=== PATIENT | male | born 1995 | race Caucasian/White ===

== ENCOUNTER 2018-04-29 14:14 | Inpatient (IN) | payer OTHER ==
[~2018-04-29] VITALS: Ht 182.9 cm; Wt 71.3 kg
--- NOTE | 2018-04-29 14:44 | ED PSYCHIATRIC COMPLAINT ---
See Addendum History of Present Illness General Chief Complaint: Psychiatric Related Complaint Stated Complaint: "BAD THOUGHTS" -SI, -HI Source: patient Exam Limitations: no limitations Vital Signs & Intake/Output Vital Signs & Intake/Output Vital Signs Date Time Temp Pulse Resp B/P B/P Pulse O2 O2 Flow FiO2 Mean Ox Delivery Rate 04/29 1646 99.9 94 18 115/75 97 Room Air 04/29 1538 Room Air 04/29 1438 98.6 88 16 113/62 98 Room Air Allergies Coded Allergies: No Known Allergies (07/15/16) Reconcile Medications No Known Home Medications Triage Note: PT PRESENTS TO THE ER WITH FRIEND TALI.. ALYSSA ONE OF THE RESIDENTS CALLED TO INFORM BEAD WIRE INSULATOR THAT PT IS SEVERELY DEPRESSED AND HAS A RECENT ATTEMPT AT SI (CUTTING HIS WRIST WITH A RAZOR BLADE) PER RESIDENT PT DENIES SI AND HI BUT FEELS THAT PT IS NOT BEING TRUTHFUL ABOUT HIS FEELINGS. PT STATES THAT HE HAS DEPRESSION AND WAS SENT IN FROM [facility] FOR A PYSCH EVALUATION.. PT STATES THAT HE PROBABLY NEEDS A EVALUATION.. PT STATES THAT HE WAS SI BUT CURRENTLY IS NOT.. PT FRIEND TALI STATES THAT YESTERDAY PT CUT HIS WRISTS LEFT FOREARM.. PT NOTED TO HAVE MULTIPLE SUPERFICIAL CUTS TO HIS LEFT FORARM.. CUTS ARE SCABBED AND RED.. PT STATES THAT HE FEELS LIKE HE IS LETTING EVERYONE DOWN.. Triage Nurses Notes Reviewed? yes Onset: Gradual Duration: week(s): Timing: recent history HPI: 23 year old male presents to the ED for increased feelings of depression over the past month. Pt also presents with several superficial lacerations to the left anterior forearm. Pt denies suicidal ideation. No drug use. Past History Travel History Traveled to [place] past 21 day No Medical History Any Pertinent Medical History? 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 No Review of Systems Review of Systems Constitutional: Denies: fever. EENTM: Denies: visual changes. Respiratory: Denies: short of breath. Cardiovascular: Denies: chest pain. GI: Denies: abdominal pain. Genitourinary: Reports: no symptoms. Musculoskeletal: Reports: no symptoms. Skin: Reports: see HPI. Neurological/Psychological: Reports: depressed. Hematologic/Endocrine: Reports: no symptoms. Immunologic/Allergic: Reports: no symptoms. Physical Exam Physical Exam General Appearance: well developed/nourished, alert, awake, anxious, mild distress Head: atraumatic, normal appearance Eyes: Bilateral: normal appearance, PERRL, EOMI. Ears, Nose, Throat: normal pharynx, normal ENT inspection, hearing grossly normal Neck: normal inspection, supple, full range of motion Respiratory: normal breath sounds, chest non-tender, no respiratory distress Cardiovascular: regular rate/rhythm Gastrointestinal: soft, non-tender Extremities: evidence of injury Neurological/Psychiatric: awake, alert, anxious, depressed affect Appearance/Memory/Insight: appropriate appearance Behavoir/Eye Contact/Speech: cooperative Thoughts/Hallucinations: no apparent hallucination Skin: linear abrasions, left wrist. Medical Clearance Statement * SAD PERSONS SAD PERSONS Response Value Male Sex? yes 1 Depression/Hopelessness? yes 2 Single//? yes 1 Social Support? has support 0 Total 4 SAD PERSONS Done? yes Progress Differential Diagnosis: drug intoxication, drug overdose, depression, suicidal ideation Plan of Care: Orders Procedure Date/time Status ETHANOL 04/29 1534 Complete Continuous Observation Monitor 04/29 1521 Active URINE DRUG SCREEN FOR ER ONLY 04/29 1521 Complete COMPREHENSIVE METABOLIC PANEL 04/29 1521 Complete CBC WITHOUT DIFFERENTIAL 04/29 1521 Complete ED CRISIS PSYCH CONSULT 04/29 1521 Active Laboratory Tests 04/29/18 1606: Urine Opiates Screen < 100, Methadone Screen < 40, Barbiturate Screen < 60, Ur Phencyclidine Scrn < 6.00, Amphetamines Screen < 100, U Benzodiazepines Scrn < 85, Urine Cocaine Screen < 50, Urine Cannabis Screen < 5.00 04/29/18 1534: Anion Gap 11, Estimated GFR > 60, BUN/Creatinine Ratio 10.0, Glucose 99, Calcium 9.9, Total Bilirubin 1.0, AST 24, ALT 27, Alkaline Phosphatase 51, Total Protein 7.3, Albumin 4.6, Globulin 2.7, Albumin/Globulin Ratio 1.7, CBC w Diff NO MAN DIFF REQ, RBC 5.41, MCV 88.9, MCH 29.7, MCHC 33.4, RDW 13.7, MPV 7.7, Gran % 68.0, Lymphocytes % 22.5, Monocytes % 8.2, Eosinophils % 0.9, Basophils % 0.4, Absolute Granulocytes 4.8, Absolute Lymphocytes 1.6, Absolute Monocytes 0.6, Absolute Eosinophils 0.1, Absolute Basophils 0, Serum Alcohol < 10.0 04/29/18 1522: Serum Alcohol Cancelled Initial ED EKG: normal axis Departure Departure Disposition: STILL A PATIENT Condition: Stable Clinical Impression Primary Impression: Depression Referrals: Verna ROCHA,Virginie Horton (PCP/Family) Departure Forms: Customer Survey General Discharge Information Prescriptions: Current Visit Scripts No Known Home Medications Comments Labs were sent and the patient was placed in a secure room. A sitter was ordered. Crisis consultation was requested. The patient was signed out to MAYA Kowalski At 5 PM.
[2018-04-29 15:48] LABS: ABSOLUTE BASOPHIL COUNT 0 /CUMM (0.0-0.2); ABSOLUTE EOSINOPHIL COUNT 0.1 /CUMM (0.0-0.7); ABSOLUTE GRANULOCYTE CT 4.8 /CUMM (1.4-6.5); ABSOLUTE LYMPH COUNT 1.6 /CUMM (1.2-3.4); ABSOLUTE MONOCYTE COUNT 0.6 /CUMM (0.10-0.60); BASOPHIL % 0.4 % (0.0-2.0); EOSINOPHIL % 0.9 % (0-5); HEMATOCRIT 48.1 % (42-52); MEAN CORPUSCULAR HGB 29.7 PG (27.0-31.0); MEAN CORPUSCULAR HGB CONC 33.4 G/DL (33.0-37.0); MEAN CORPUSCULAR VOLUME 88.9 FL (80.0-94.0); MEAN PLATELET VOLUME 7.7 FL (7.4-10.4); PLATELET COUNT 313 /CUMM (130-400); RBC DISTRIBUTION WIDTH 13.7 % (11.5-14.5); RED BLOOD CELL CT 5.41 /CUMM (4.70-6.10); WHITE BLOOD CELL COUNT 7.1 /CUMM (4.8-10.8)
--- NOTE | 2018-04-29 19:25 | ED PSY CRISIS COLLATERAL NOTE ---
Collateral Note Collateral Note Family/Inform/Federica Contacts: Crisis contacted [facility]'s answering service to obtain collateral information- Agustina Linares, FRAME FEEDER - [phone] the on-call clinician returned the call and advised that [facility] has no record of Antonio being an active client, current or past, and she had seen no report of any incidents / events related to him.
--- NOTE | 2018-04-29 20:14 | ED PSYCH CRISIS CONSULTATION ---
Crisis Consult Basic Assessment Date of Consult: 04/29/18 Responsible Person/Accompanied By: Friends Suad Insurance Authorization: Insurance #1: Insurance name: [employer] Phone number: Policy number: [id number] Group number: [id number] Authorization number: ED Provider: Patient's ED Provider: Prudencio Duarte DO Primary Care Physician: Patient's PCP: Virginie Gillespie MD PCP's Current Psychiatrist: None Chief Complaint: Psychiatric Related Complaint Patient's Quote: " I was just depressed." Present Illness: The patient is a 23 year old single, male presenting to the ED, from [facility] after meeting with Dr. Trenton Meadows ([phone]). The patient was sent over for a Crisis evaluation and "Ignacio (Trenton Meadows)," called the triage nurse to express his concerns. The patient presents with depressed mood and flat affect. He had poor eye contact, however had good participation in the evaluation. He reports that he has been feeling more depressed lately and having thoughts of self harm. He has cuts to his left wrist, which appear to have scabbed over. He states that he was having thoughts to "take the pain for others ," and cut himself yesterday morning. He does admit to having suicidal thoughts while he was cutting, however denies adamantly that it was a suicide attempt. He denies any history of suicide attempts, however did confirm making a statement to his friends on Sunday night (04/27/2018), about wanting to crash his car and taking a pair of scissors to his wrist (not cutting), a couple of weeks ago. He states that he regrets that he cut himself yesterday and does not want to . He does admit to having depression and anxiety, rating his depression a 1 out of 10 and anxiety a 2 out of 10, 10 being the most severe. He states that he has been upset that he is not in the job, he would like and with his ex- girlfriend / friend Suad. He denies feeling helpless, hopeless, worthless or useless. He denies any history of mental health issues or treatment. He states that he is not having homicidal thoughts and has never had hallucinations. He denies any drug or alcohol abuse. He denies any trauma or abuse hx. He resides with his parents and sister and states that his family is very close. 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 He would like to be discharged home and to follow up with outpatient treatment. STEPHANIE spoke with his mother, Martha Martinez ([phone]),his father Schuyler Martinez ) and his sister Lynette. His parents are very concerned about the patients relationship with his friend Gibran and his ex-girlfriend / friend Abbie. They state that he never had depression and any problems until he broke up with Abbie, noting that recently Gibran asked the patient if he could date Abbie. They have noticed him to be more withdrawn and "pushing everyone aside." They confirm that he has no history or drug or alcohol abuse or mental health issues. They have never known him to have suicidal thoughts or attempt suicide. They state that he has been drinking a little bit more since hanging out with Abbie. Lynette states that the patient told her that he cut himself because he felt bad, not because he wanted to . His parents and his sister are not concerned that he would harm himself. His father has been having conversations with him about his future and planing to move out at some point. They appear to be very supportive and just want him to have healthy relationships. STEPHANIE spoke to Abbie Graves ([phone]) and Gibran De La O ([phone]), who brought him to the ED today. Abbie states that she was dating that patient, however states that they are now friends. Gibran states that he has been friends with the patient since they were in high school. Abbie reports that the patient has made multiple suicidal statements to her and she is concerned for his safety. She states that he told her today that 1-2 weeks ago, he tried to cut his wrist with scissors at work. Abbie and Gibran state that on Sunday night, he made comments about "crashing his car," and they were so concerned that they drove him home, that night. Abbie notes that the patient did have one drink, when he made that statement. Abbie reports that he then cut himself in the AM, stating "he wanted to feel pain." Abbie reports that she has noticed him to be more depressed, noting that it started about 1 month ago. Abbie and Gibran state that they are very concerned that the patient will kill himself. Patient's Address: [address] [place] [address] Other Phone Number: Who Do You Live With? Other (see notes) (Mother, father and sister) Family/Informants Interviewed: Mother- Martha, father Schuyler, sister Lynette, friend Gibran and ex-girlfriend / friend Abbie. Allergies - Coded Allergies: No Known Allergies (07/15/16) Current Medications - No Known Home Medications Laboratory Results: Laboratory Tests 04/29/18 1606: Urine Opiates Screen < 100, Methadone Screen < 40, Barbiturate Screen < 60, Ur Phencyclidine Scrn < 6.00, Amphetamines Screen < 100, U Benzodiazepines Scrn < 85, Urine Cocaine Screen < 50, Urine Cannabis Screen < 5.00 04/29/18 1534: Anion Gap 11, Estimated GFR > 60, BUN/Creatinine Ratio 10.0, Glucose 99, Calcium 9.9, Total Bilirubin 1.0, AST 24, ALT 27, Alkaline Phosphatase 51, Total Protein 7.3, Albumin 4.6, Globulin 2.7, Albumin/Globulin Ratio 1.7, CBC w Diff NO MAN DIFF REQ, RBC 5.41, MCV 88.9, MCH 29.7, MCHC 33.4, RDW 13.7, MPV 7.7, Gran % 68.0, Lymphocytes % 22.5, Monocytes % 8.2, Eosinophils % 0.9, Basophils % 0.4, Absolute Granulocytes 4.8, Absolute Lymphocytes 1.6, Absolute Monocytes 0.6, Absolute Eosinophils 0.1, Absolute Basophils 0, Serum Alcohol < 10.0 04/29/18 1522: Serum Alcohol Cancelled Past History Past Medical History Neurological: NONE EENT: NONE Cardiovascular: NONE Respiratory: NONE Gastrointestinal: NONE Hepatic: NONE Renal: NONE Musculoskeletal: NONE Psychiatric: NONE Endocrine: NONE Blood Disorders: NONE Cancer(s): NONE 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 Physical Limitations (Interventions): None noted Psychiatric Treatment History Psych Treatment Psychiatric Treatment No (Pt. denies) Inpatient Treatment No (Pt. denies) Outpatient Treatment No Location of Treatment N/A Reason for Treatment N/A Dates of Treatment N/A Response to Treatment N/A Diagnosis by History: N/A Substance Use/Abuse History Drug Use/Abuse Substances Used/Abused No First Use N/A Last Used N/A How much used/taken N/A How often N/A For how long N/A Route of use N/A Substance Abuse Treatment Substance Abuse Treatment Past Substance Abuse [place] No Inpatient Treatment No Outpatient Treatment No Location of Treatment N/A Reason for Treatment N/A Dates of Treatment N/A Response to Treatment N/A Comments: N/A Current Mental Status Mental Status Orientation: Person, Place, Situation Affect: Depressed, Flat Speech: WNL Neuro-vegetative: WNL, The patient stated that he had a bad dream, prior to cutting his wrist. Appearance Appearance- Dress/Hygiene: The patient was sitting on the bed, neat clean and well groomed. Behaviors Thought Process: WNL Thought Content: WNL Memory: WNL Insight: WNL SI/HI Risk Assessment Past Suicidal Ideation/Attempts Yes Current Suicidal Ideation/Att No Past Homicidal Ideation/Att: No Current Homicidal Ideation/Attempts No Degree of Intent: The patient admits to having suicidal thoughts in the past, however denies any current thoughts. He does admit to cutting his wrist yesterday, in an attempt to self harm and adamantly states that it was not a suicide attempt. He did confirm that he made statements about crashing his car on Sunday night. His friends are very concerned about his safety and state that he has made multiple suicidal statements to them. Danger To: Self Gravely Disabled: N/A Risk Factors: age (under 24/over 65), poor impulse control, male Lethality Ratin PTSD Checklist PTSD Done? patient declined (Denies trauma or abuse hx.) ED Management Sitter: Yes Restraints: No DSM5/PS Stressors/Medical Prob Diagnosis' (DSM 5, Stressors, Medical): F32.9 Unspecified Depressive Disorder Medical:Unremarkable Stressors: Family issues, relationship issues, employment Current GAF: 28 Comments: N/A Departure Disposition Psych Medical Clearance Date: 04/29/18 Medically Cleared at: 1845 Time Started: 1844 Time Ended: 1999 Psychiatrist Consulted: Basilia Tam MD Date Disposition Established: 04/29/18 Time Disposition Established: 2014 Plan for Disposition - Modality: Inpatient Psychiatry Facility: [facility] Contact: N/A Telephone: N/A Rationale for Disposition: The patient presented to the ED with depression and a recent self harming episode, in which he cut his left wrist. He admits to having suicidal ideations over the last month, however minimizes them. His friends were very concerned for his safety and report that he has made concerneing statments to them, specifically talking about crashing his car over the weekend. The case was discussed with Dr. Tam and she found him to be a danger to himself and in need of an inpatient admission. She will admit him to [facility] on a PEC. Type of IP Admission: PEC Additional Instructions: N/A Referrals Verna ROCHA,Virginie Horton (PCP/Family)
--- NOTE | 2018-04-29 21:27 | IP CRISIS DIAG ASSESS PSYCH ---
See Addendum Diagnostic Assessment Basic Assessment Insurance Authorization: Insurance #1: Insurance name: [employer] Phone number: Policy number: [id number] Group number: [id number] Authorization number: STEPHANIE called and was connected to [employer], after hours ( ). STEPHANIE spoke to Narinder LyonHoward who stated that they have been having issues with one of their branches and therefore there was no one available to complete the prior authorization. Narinder will have someone call when the are available, however if it is not done by the AM, Crisis should contact [phone]- [phone] to complete the prior authorization, THE AUTHORIZATION WILL NEED TO BE COMPLETED WITHIN 24 HOURS OF ADMISSION, OR THEY WILL NOT COVER. Primary Care Physician: Patient's PCP: Virginie Gillespie MD PCP's Patient's Quote: " I was just depressed." Present Illness: The patient is a 23 year old single, male presenting to the ED, from [facility] after meeting with Dr. Trenton Meadows ([phone]). The patient was sent over for a Crisis evaluation and "Ignacio (Trenton Meadows)," called the triage nurse to express his concerns. The patient presents with depressed mood and flat affect. He had poor eye contact, however had good participation in the evaluation. He reports that he has been feeling more depressed lately and having thoughts of self harm. He has cuts to his left wrist, which appear to have scabbed over. He states that he was having thoughts to "take the pain for others ," and cut himself yesterday morning. He does admit to having suicidal thoughts while he was cutting, however denies adamantly that it was a suicide attempt. He denies any history of suicide attempts, however did confirm making a statement to his friends on Sunday night (04/27/2018), about wanting to crash his car and taking a pair of scissors to his wrist (not cutting), a couple of weeks ago. He states that he regrets that he cut himself yesterday and does not want to . He does admit to having depression and anxiety, rating his depression a 1 out of 10 and anxiety a 2 out of 10, 10 being the most severe. He states that he has been upset that he is not in the job, he would like and with his ex- girlfriend / friend Abbie and Gibran. He denies feeling helpless, hopeless, worthless or useless. He denies any history of mental health issues or treatment. He states that he is not having homicidal thoughts and has never had hallucinations. He denies any drug or alcohol abuse. He denies any trauma or abuse hx. He resides with his parents and sister and states that his family is very close. 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 He would like to be discharged home and to follow up with outpatient treatment. STEPHANIE spoke with his mother, Martha Martinez ([phone]),his father Schuyler Martinez ) and his sister Lynette. His parents are very concerned about the patients relationship with his friend Gibran and his ex-girlfriend / friend Abbie. They state that he never had depression and any problems until he broke up with Abbie, noting that recently Gibran asked the patient if he could date Abbie. They have noticed him to be more withdrawn and "pushing everyone aside." They confirm that he has no history or drug or alcohol abuse or mental health issues. They have never known him to have suicidal thoughts or attempt suicide. They state that he has been drinking a little bit more since hanging out with Abbie. Lynette states that the patient told her that he cut himself because he felt bad, not because he wanted to . His parents and his sister are not concerned that he would harm himself. His father has been having conversations with him about his future and planing to move out at some point. They appear to be very supportive and just want him to have healthy relationships. STEPHANIE spoke to Abbie Graves ([phone]) and Gibran De La O ([phone]), who brought him to the ED today. Abbie states that she was dating that patient, however states that they are now friends. Gibran states that he has been friends with the patient since they were in high school. Abbie reports that the patient has made multiple suicidal statements to her and she is concerned for his safety. She states that he told her today that 1-2 weeks ago, he tried to cut his wrist with scissors at work. Abbie and Gibran state that on Sunday night, he made comments about "crashing his car," and they were so concerned that they drove him home, that night. Abbie notes that the patient did have one drink, when he made that statement. Abbie reports that he then cut himself in the AM, stating "he wanted to feel pain." Abbie reports that she has noticed him to be more depressed, noting that it started about 1 month ago. Abbie and Gibran state that they are very concerned that the patient will kill himself. Patient's [place] [address] Other Phone Number: Who Do You Live With? Other (see notes) (Mother, father and sister) Feel Safe Where You Live? Yes Feel Safe in Your Relationship Yes (Not in a current relationship ) Marital Status: single Do You Have Children? No Primary Language? Vietnamese Family/Informants Interviewed: Mother- Martha, father Schuyler, sister Lynette, friend Gibran and ex-girlfriend / friend Abbie. Allergies - Coded Allergies: No Known Allergies (07/15/16) Current Medications - No Known Home Medications Consequences of Psych Med Use: N/A Comment: N/A Lab Results: Laboratory Tests 04/29/18 1606: Urine Opiates Screen < 100, Methadone Screen < 40, Barbiturate Screen < 60, Ur Phencyclidine Scrn < 6.00, Amphetamines Screen < 100, U Benzodiazepines Scrn < 85, Urine Cocaine Screen < 50, Urine Cannabis Screen < 5.00 04/29/18 1534: Anion Gap 11, Estimated GFR > 60, BUN/Creatinine Ratio 10.0, Glucose 99, Calcium 9.9, Total Bilirubin 1.0, AST 24, ALT 27, Alkaline Phosphatase 51, Total Protein 7.3, Albumin 4.6, Globulin 2.7, Albumin/Globulin Ratio 1.7, CBC w Diff NO MAN DIFF REQ, RBC 5.41, MCV 88.9, MCH 29.7, MCHC 33.4, RDW 13.7, MPV 7.7, Gran % 68.0, Lymphocytes % 22.5, Monocytes % 8.2, Eosinophils % 0.9, Basophils % 0.4, Absolute Granulocytes 4.8, Absolute Lymphocytes 1.6, Absolute Monocytes 0.6, Absolute Eosinophils 0.1, Absolute Basophils 0, Serum Alcohol < 10.0 04/29/18 1522: Serum Alcohol Cancelled Toxicology Screen Completed? Yes Results: negative Symptoms of Use: N/A Past History Past Medical History Medical History: None/Denies Past Surgical History Surgical History TONSILS WISDOM TEETH Abuse/Trauma History Trauma History/Current Trauma: Denies Legal History Current Legal Status: none Have you ever been arrested? No Number of Arrests: [address] Dates: N/A Cash Applications Analyst N/A Psychosocial History Strengths/Capabilities: The patient is future focused and has a supportive family and a stable living enviornment. Physical Limitations (Interventions): None noted Psychiatric Treatment History Psych Treatment Psychiatric Treatment No (Pt. denies) Inpatient Treatment No (Pt. denies) Outpatient Treatment No Location of Treatment N/A Reason for Treatment N/A Dates of Treatment N/A Response to Treatment N/A Diagnosis by History: N/A Risk Factors: age (under 24/over 65), poor impulse control, male Substance Use/Abuse History Drug Use/Abuse minimum 12mo Hx Substances Used/Abused No First Use N/A Last Used N/A How much used/taken N/A How often N/A For how long N/A Route of use N/A Substance Abuse Treatment Substance Abuse Treatment Past Substance Abuse TX No Inpatient Treatment No Outpatient Treatment No Location of Treatment N/A Reason for Treatment N/A Dates of Treatment N/A Response to Treatment N/A Comments: N/A Sexual History Sexual Concerns: None noted Education History Highest Level of Education: bachelor's degree Preferred Learning Style: Unknown Current Mental Status Mental Status Orientation: Person, Place, Situation Affect: Depressed, Flat Speech: WNL Neuro-vegetative: WNL, The patient stated that he had a bad dream, prior to cutting his wrist. Appearance Appearance- Dress/Hygiene: The patient was sitting on the bed, neat clean and well groomed. Behaviors Thought Process: WNL Thought Content: WNL Memory: WNL Insight: WNL SI/HI Risk Assessment - Minimum 6mo History- Past Suicidal Ideation/Attempts Yes Current Suicidal Ideation/Att No Past Homicidal Ideation/Att: No Current Homicidal Ideation/Attempts No Degree of Intent: The patient admits to having suicidal thoughts in the past, however denies any current thoughts. He does admit to cutting his wrist yesterday, in an attempt to self harm and adamantly states that it was not a suicide attempt. He did confirm that he made statements about crashing his car on Sunday night. His friends are very concerned about his safety and state that he has made multiple suicidal statements to them. Danger To: Self Gravely Disabled: N/A Risk Factors: age (under 24/over 65), poor impulse control, male Lethality Ratin Needs/Init TX Plan/Goals: Admit to the inpatient unit for safety and symptom stabilization. Attend group, family and individual sessions. Work with provider on medication evaluation. Work with treatment team to transition to care in the community. AUDIT-C Questionnaire: AUDIT-C Questionnaire: Response Value ETOH use in the past year Monthly or less 1 # drinks typical/day 1 or 2 0 6 or > drinks per occasion Never 0 Total 1 DSM5/PS Stressors/Medical Prob Diagnosis' (DSM 5, Stressors, Medical): F32.9 Unspecified Depressive Disorder Medical:Unremarkable Stressors: Family issues, relationship issues, employment Current GAF: 28 Comments: N/A
[2018-04-29 22:28] VITALS: BP 118/74
--- NOTE | 2018-04-30 00:20 | History & Physical ---
General Information and HPI History of Present Illness: 23M PMH depression sent from PCP to ED for severe depression, thoughts of self- harm, and SI. He has a flat affect and gives minimal history. He reports feeling depressed and evades when asked about SI. He has no physical complaints. He has no neurological symptoms. 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 Home Review of Systems Review of Systems Constitutional: Reports: no symptoms. EENTM: Reports: no symptoms. Cardiovascular: Reports: no symptoms. Respiratory: Reports: no symptoms. GI: Reports: no symptoms. Genitourinary: Reports: no symptoms. Musculoskeletal: Reports: no symptoms. Skin: Reports: no symptoms. Neurological/Psychological: Reports: no symptoms. Hematologic/Endocrine: Reports: no symptoms. Immunologic/Allergic: Reports: no symptoms. All Other Systems: Reviewed and Negative Exam & Diagnostic Data Last 24 Hrs of Vital Signs/I&O Vital Signs Date Time Temp Pulse Resp B/P B/P Pulse O2 O2 Flow FiO2 Mean Ox Delivery Rate 04/29 2228 97.9 80 118/74 04/29 2155 98.8 94 18 128/72 98 04/29 2050 98.8 92 18 131/73 98 Room Air 04/29 1646 99.9 94 18 115/75 97 Room Air 04/29 1538 Room Air 04/29 1438 98.6 88 16 113/62 98 Room Air Intake & Output 04/30 0800 07 0000 04/29 1600 Intake Total Output Total Balance Patient 71.327 kg 73.028 kg Weight Weight Reported by Patient Measurement Method Physical Exam General Appearance Alert, Oriented X3, Cooperative, No Acute Distress Skin No Rashes HEENT Atraumatic, Mucous Membr. moist/pink Neck Supple Cardiovascular Regular Rate Lungs Clear to Auscultation Abdomen Soft, No Tenderness Neurological Exam Findings: Normal Gait, Normal Speech Cranial Nerves II through XII: Normal as tested Extremities No Clubbing, No Cyanosis, No Edema Vascular Normal Pulses Last 24 Hrs of Labs/Fransisco: Laboratory Tests 04/29/18 1606: Urine Opiates Screen < 100, Methadone Screen < 40, Barbiturate Screen < 60, Ur Phencyclidine Scrn < 6.00, Amphetamines Screen < 100, U Benzodiazepines Scrn < 85, Urine Cocaine Screen < 50, Urine Cannabis Screen < 5.00 04/29/18 1534: Anion Gap 11, Estimated GFR > 60, BUN/Creatinine Ratio 10.0, Glucose 99, Calcium 9.9, Total Bilirubin 1.0, AST 24, ALT 27, Alkaline Phosphatase 51, Total Protein 7.3, Albumin 4.6, Globulin 2.7, Albumin/Globulin Ratio 1.7, CBC w Diff NO MAN DIFF REQ, RBC 5.41, MCV 88.9, MCH 29.7, MCHC 33.4, RDW 13.7, MPV 7.7, Gran % 68.0, Lymphocytes % 22.5, Monocytes % 8.2, Eosinophils % 0.9, Basophils % 0.4, Absolute Granulocytes 4.8, Absolute Lymphocytes 1.6, Absolute Monocytes 0.6, Absolute Eosinophils 0.1, Absolute Basophils 0, Serum Alcohol < 10.0 04/29/18 1522: Serum Alcohol Cancelled Assessment/Plan Assessment: 23M admitted to [facility] with severe depression, SI, and thoughts of self-harm. Recommendations - Management of care by psychiatry - Re-consult medicine as needed - Ambulatory for DVT PPx As Ranked By This Provider Problem List: 1. Depression 2. Suicidal ideation Miscellaneous Miscellaneous Documentation Attending Case Discussed With: Julito Davies MD Primary Care Physician: Verna ROCHA,Virginie Mercado. Patient sees these Specialists None Level of Patient Care: [facility]
[2018-04-30 07:41] VITALS: BP 109/67
[2018-04-30 12:11] VITALS: BP 105/59
--- NOTE | 2018-04-30 13:05 | SOCIAL WORKER PROG NOTE PSYCH ---
Social Work Progress Note Progress Note Spoke with Mom will attend a family meeting 05/01/18 at 10:30am Pt has a IOP intake appt 05/01/18 at 1:15pm Met with pt he denies si/hi/ah/vh, he admits he was coping by means of cutting himself, he wanted to "feel pain", he states he was struggling with his recent break up and the possibility that his ex gf Abbie, may date a close friend of his, "I was jealous". He is agreeable to IOP as a discharge plan.
--- NOTE | 2018-04-30 13:21 | SOCIAL WORKER PROG NOTE PSYCH ---
Social Work Progress Note Progress Note Approved 5 days from 04/29/18-05/03/18. Auth #[id number]. If additional units are needed, call Abbie @ [phone]. I mentioned he has IOP intake tomorrow. Abbie can help with auth for IOP as well.
--- NOTE | 2018-04-30 15:19 | CPS PROVIDER INIT ASMT PSYCH ---
See Addendum Psychiatric Admission Aircraft Ordnance Systems Mechanic's Note Reviewed: Yes Patient Seen and Examined: Yes (with STEPHANIE Candelaria) Identifying Information: 23 yo SWM without past psychiatric hx, who was admitted on 04/29/18 on a PEC from ER. Chief Complaint: Cut left ventral forearm superficially a couple of times. Reaction to Hospitalization: "Probably would like not to be here." History of Present Illness Onset of Illness: Decline over past month. Circumstances Leading to Admission: "I've been having some bad feelings. Feeling a little down." Had a fight with friend (ex-GF) Abbie. They broke up on February 06. They had been together for a couple of months. She reportedly thought "I wasn't quite mature enough." Thought about hurting himself to cause pain, not to kill self. Cut self at work with scissors on morning. Cut self again at home with a knife on Sunday. "Tried to see if it would hurt." Friend Gibran of 7 years wanted to date Abbie and patient told him no. They were too close and patient felt jealous. Parents reportedly were a little tough on him, wanting him to get a job. Was getting home at 3-4 a.m. and parents threatened to kick him out Sunday. Problem(s) Justifying Need for Admission: Cutting. Possible SI. Other HPI: Sleep: pretty good. Appetite: wasn't great, on and off x 1 month. Skipping 1 meal/day. Lost 10-15#/1 month. Energy: good. Case and treatment plan discussed in team meeting. Staff reports that the patient is denying SI. Appearing calm and a little withdrawn. Past Psychiatric History Past Diagnosis(es)- if any: None. Past Precipitating Factors- if any: N/A. - Include inpatient and outpatient treatment Treatment History: Outpatient tx: none. Inpatient tx: none. History of Suicide Attempts or Gestures No prior attempts or gestures. Substance Abuse History: Tobacco: none. Alcohol: social, 2x/week. Denies MJ, cocaine, benzos, pain pills. Allergies: Coded Allergies: No Known Allergies (07/15/16) Home Med List: None. - Include any medical condition(s) that may - impact the patient's recovery/remission Past Medical History: Recent superficial cutting. 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 Substance Use: Denied. Suicides: Denied. Social History Living Situation: Lives with parents. Significant Relationships (family/friends): Parents. Education: B.S. from [employer] in biotech. Will pursue masters in cell and molecular biology at [employer] this fall. Vocation/Occupation: Has been working at [employer] x 6 years. 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 Legal: Denied. Healthly Behaviors Screening Tobacco Screening Tobacco Use from ED Docu: Never used - If tobacco counseling indicated - the following topics are required. - #1 Recognizing dangerous situations. - #2 Coping Skills. - #3 Basic information about quitting. Status of Tobacco Cessation Counseling: Not Applicable Cessation Med Status Not Applicable Alcohol Screening - ETOH screen POS if BAL >=80 or Audit-C>= M4/F3 Audit-C Score from Diag Assess: 1 Blood Alcohol Level: Laboratory Tests 04/29 04/29 1522 1534 Toxicology Serum Alcohol (<10 MG/DL) Cancelled < 10.0 Alcohol Use Screening Results: Neg per Audit C &/or BAL - If ETOH counseling indicated - the following topics are required. - #1 Express concern about the patient's - drinking at unhealthy levels, include informing - of national norms for moderate drinking: - men <= 14 drinks/week, max 4 drinks/occasion - women <= 7 drinks/week, max 3 drinks/occasion - #2 Providing feedback, including linking alcohol to - negative physical effects (liver injury, hypertension) - negative emotional effects (relationship problems and - depression) - negative occupational consequences (reduced work - performance) - #3 Advising the patient to abstain from alcohol or - to drink below national norms for moderate drinking - (as listed above). Status of ETOH Use Counseling: N/A B/C NO ETOH Use Metabolic Screening - Screen if on a Neuroleptic Medication - Metabolic screening should include: - Blood Pressure, BMI, Glucose or Hgb A1c, & a - Lipid profile from within the past 365 days. Metabolic Screening ([x]) Not Applicable, patient not on a neuroleptic. OR () Patient on a neuroleptic(s) . Enter below results for Hemoglobin A1C, and lipid panel if obtained during the last 365 days. BMI: 21.300 Blood Pressure: 105/59 Laboratory Results From [facility] (If applicable): Exam and Plan Mental Status Examination Ambulation Status: Gait WNL. Appearance: Dressed in T-shirt and shorts in NAD. Attitude towards examiner: Calm, polite and cooperative. Psychomotor activity: There is no psychomotor agitation or retardation. Behavior: Unremarkable. Quality of speech: Normal in volume, rate and tone. Affect: Calm and blunted. Mood: Good. Sad 0/10. Anxiety 1-2/10. Denies feeling hopeless, helpless, worthless or guilty. Suicidal Ideation: Denies active and passive SI. Denies thoughts of engaging in S.I.B. Homicidal Ideation: Denies HI. Denies HI to Abbie and Gibran. Hallucinations: Denies AH and VH. Paranoid/Delusional Material: Denies PI and magical hoff. Difficulties with thought organization: none. Insight: Fair. Judgment: Was poor; fair now. Orientation: Ox3. Cognition: Grossly intact. Memory Function: Grossly intact. Estimate of intellectual functioning: Average to above average. Assets/Strengths Patient Identified Assets/Strengths: Being helpful to other people. Good worker. Impression/Plan Impression and Plan: The patient is here after engaging in SIB to feel pain. Broke up with GF in January. - Include all active medical diagnosis that require tx DSM 5 Diagnosis(es): Major depression, recurrent, severe. - Initial Tx Plan for Active Psych & Medical Conditions Treatment Plan: The patient will be monitored on the unit for safety and mood disorder. Additional information is needed from collaterals: parents. Patient is not interested in an antidepressant at this time. He would like counseling. Anticipate likely discharge tomorrow with IOP intake and return to home and family. - Factors that would help patient function - in a less restrictive setting. Factors: Not suicidal.
--- NOTE | 2018-04-30 15:20 | CPS PROVIDER INIT ASMT PSYCH ---
Psychiatric Admission Land Management Forester's Note Reviewed: Yes Patient Seen and Examined: Yes (with STEPHANIE Candelaria) Identifying Information: 23 yo SATNAM without past psychiatric hx, who was admitted on 04/29/18 on a PEC from ER. Chief Complaint: Cut left ventral forearm superficially a couple of times. 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 - #1 Recognizing dangerous situations. - #2 Coping Skills. - #3 Basic information about quitting. Status of Tobacco Cessation Counseling: Not Applicable Cessation Med Status Not Applicable Alcohol Screening - ETOH screen POS if BAL >=80 or Audit-C>= M4/F3 Audit-C Score from Diag Assess: 1 Alcohol Use Screening Results: Neg per Audit C &/or BAL - If ETOH counseling indicated - the following topics are required. - #1 Express concern about the patient's - drinking at unhealthy levels, include informing - of national norms for moderate drinking: - men <= 14 drinks/week, max 4 drinks/occasion - women <= 7 drinks/week, max 3 drinks/occasion - #2 Providing feedback, including linking alcohol to - negative physical effects (liver injury, hypertension) - negative emotional effects (relationship problems and - depression) - negative occupational consequences (reduced work - performance) - #3 Advising the patient to abstain from alcohol or - to drink below national norms for moderate drinking - (as listed above). Metabolic Screening - Screen if on a Neuroleptic Medication - Metabolic screening should include: - Blood Pressure, BMI, Glucose or Hgb A1c, & a - Lipid profile from within the past 365 days. Exam and Plan Impression/Plan Impression and Plan: The patient is here after engaging in SIB to feel pain. Broke up with GF in January. - Include all active medical diagnosis that require tx - Initial Tx Plan for Active Psych & Medical Conditions - Factors that would help patient function - in a less restrictive setting.
[2018-04-30 16:10] VITALS: BP 124/72
[2018-04-30 20:21] VITALS: BP 135/77
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
[2018-05-01 07:50] VITALS: BP 113/60
[2018-05-01] MEDS ORDERED: LEXAPRO10 M1 PO (11:47)
--- NOTE | 2018-05-01 11:52 | Patient Discharge Instructions ---
Psych Discharge Inst General Discharge Information Reason for Admission: Superficial cutting. Psy Discharge Primary Diag+ Major depression, single, severe Psy Discharge Secondary Diag+ Superficial cutting Summary Tests/Major Procedures Lab ALT 27 U/L 04/29/18 1534 AST 24 U/L 04/29/18 1534 BUN 10 mg/dL 04/29/18 1534 Calcium 9.9 mg/dL 04/29/18 1534 Carbon Dioxide 28 mmol/L 04/29/18 1534 Chloride 106 mmol/L 04/29/18 1534 Creatinine 1.0 mg/dL 04/29/18 1534 Estimated GFR > 60 ml/min 04/29/18 1534 Glucose 99 mg/dL 04/29/18 1534 Potassium 4.2 mmol/L 04/29/18 1534 Sodium 145 mmol/L 04/29/18 1534 Hct 48.1 % 04/29/18 1534 Hgb 16.1 G/DL 04/29/18 1534 Plt Count 313 /CUMM 04/29/18 1534 RBC 5.41 /CUMM 04/29/18 1534 WBC 7.1 /CUMM 04/29/18 1534 Serum Alcohol < 10.0 MG/DL 04/29/18 1534 Studies Pending at DC: TSH(reflex) Patient Instructions Contact Information Your Psychiatrist on [facility] was Richard Jacobo MD * If you are experiencing an emergency related to this hospitalization, please call [phone] to contact the treating psychiatrist or the psychiatrist-on- call. * To Request a copy of your medical records, please contact the Medical Records Department at [phone]. * To request results of studies pending at the time of discharge, please call [phone]. * Continue your Medications until directed to stop by your Healthcare provider. General Medication Information Please continue to take your new medications and your continued home medications , unless otherwise indicated on your discharge medication list, or unless directed by your MD or ELECTRICAL POWER STATION TECHNICIAN to stop them. Special Instructions Diet Regular Activity Normal - Tobacco Use Treatment Offered Post DC Medications Offered: Not Applicable Post DC Tobacco Treatment Plan: Not Applicable - EtOH/Drug Use D/O Treatment Offered Post DC Medications Offered: NA-No EtOH/Drug Use D/O Post DC EtOH/SubAbuse TX Plan: NA-No EtOH/Drug Use D/O Metabolic Screening ([x]) Not Applicable, patient not on a neuroleptic. OR () Patient on a neuroleptic(s) . Enter below results for Hemoglobin A1C, and lipid panel if obtained during the last 365 days. BMI: 21.300 Blood Pressure: 113/60 Laboratory Results From [facility] (If applicable): Advance Directives Does the Patient have Medical Advance Directives No/Refused further info Does Pt have Psychiatric Advance Directives? No/Refused further info Does Patient have a Designated Surrogate Decision Maker: No Information About Psychiatric Advance Directives Provided? Refused Discharge Plan Post Hospital Treatment Plan: [facility] IOP intake today at 1:15 pm. Return to home, family and work. Family to lock up gun permit/all firearms/ammunition.
--- NOTE | 2018-05-01 12:07 | SOCIAL WORKER PROG NOTE PSYCH ---
Social Work Progress Note Progress Note Pt had a positive family meeting, and feels preapred for discharge and agreeable to attend IOP. Pt states he will practice creating space between him and his friends, as he decides who is a good influence and who is not. Pt denies si/hi/ ah/vh. Family agreeable to have him return home. Faxed Referral(s) Referred To: [facility] Transition of Care Documents sent: DC Instructions, Health Summary Faxed to: [facility] Fax #: [phone] Faxed by: Teagan Kamara Date faxed: 05/01/18 Time Faxed: [phone]
[2018-05-01 12:19] VITALS: BP 127/77
--- NOTE | 2018-05-01 14:55 | CP SOUTH PROGRESS NOTE PSYCH ---
Psych (Inpt) Progress Note Progress Note Include the following elements, when applicable: Involvement in the active treatment of the patient with behavioral observations of the patient and the patient's response to the treatment. Review of the ongoing treatment process in the context of the treatment plan. Indication of how multi-disciplinary staff members are carrying out the treatment plan. Plans for future interventions and recommendations for revision of the treatment plan. Liaison with other physicians/providers. Progress Note: Case and treatment plan discussed in team meeting. Staff reports that the patient is denying suicidal ideation. Did not talk about what brought him here. Talked about [facility]. Has IOP intake at 1:15 PM. Patient seen at 10:27 AM. He was in group prior to meeting with me in office. Feels okay. Has no complaints. Affect is calm and blunted. Describes mood as "doing good, I'm happy, relaxed." Rates sad mood 0/10 and anxiety 2/10. Denies feeling hopeless, helpless, worthless or guilty. Denies active and passive suicidal ideation. Denies thoughts of engaging in self-injurious behavior. Denies homicidal ideation. Denies auditory and visual hallucinations and paranoid ideation. Describes sleep as pretty good. Reports appetite is good and states he ate breakfast. Energy is good and states he feels energetic. Feels ready and safe for discharge. Major risks and benefits of Lexapro were reviewed with the patient. He was advised to avoid drugs and alcohol while on this medication. He is tolerating Lexapro well. I attended family meeting with patient, parents, sister and social research assistant, Teagan. Father reported that he will be removing patient's gun permit and all guns and ammunition will be locked up and unavailable to the patient. Patient's and family's questions were addressed. IMPRESSION: Condition improved. Okay for discharge today to IOP intake then to home and family.
--- NOTE | 2018-05-01 15:17 | DISCHARGE SUMMARY REPORT-PSYCH ---
Visit Information Visit Dates/Diagnosis' Admission Date: 04/29/18 Discharge Date: 05/01/18 Reason for Admission: Superficial cutting. Psy Discharge Primary Diag: Major depression, single, severe Psy Discharge Secondary Diag: Superficial cutting Hospital Course Significant Lab Findings: Lab ALT 27 U/L 04/29/18 1534 AST 24 U/L 04/29/18 1534 BUN 10 mg/dL 04/29/18 1534 Calcium 9.9 mg/dL 04/29/18 1534 Carbon Dioxide 28 mmol/L 04/29/18 1534 Chloride 106 mmol/L 04/29/18 1534 Creatinine 1.0 mg/dL 04/29/18 1534 Estimated GFR > 60 ml/min 04/29/18 1534 Glucose 99 mg/dL 04/29/18 1534 Potassium 4.2 mmol/L 04/29/18 1534 Sodium 145 mmol/L 04/29/18 1534 Hct 48.1 % 04/29/18 1534 Hgb 16.1 G/DL 04/29/18 1534 Plt Count 313 /CUMM 04/29/18 1534 RBC 5.41 /CUMM 04/29/18 1534 WBC 7.1 /CUMM 04/29/18 1534 Serum Alcohol < 10.0 MG/DL 04/29/18 1534 Lab Free T4 1.49 ng/dL 04/29/18 1534 TSH &T3 &Free T4 Intrp 0.611 uIU/mL 04/29/18 1534 Total T3 2.28 ng/mL H 04/29/18 1534 Course Complications: None. Consultations: The patient was seen for admission H&P by Dr. Davies. Dr. Davies noted on 08/08: "Assessment/Plan Assessment: 23M admitted to [facility] with severe depression, SI, and thoughts of self-harm. Recommendations - Management of care by psychiatry - Re-consult medicine as needed - Ambulatory for DVT PPx As Ranked By This Provider Problem List: 1. Depression 2. Suicidal ideation" Allergies: Coded Allergies: No Known Allergies (07/15/16) Hospital Course/TX Response: The patient was monitored on the unit for safety and mood disorder. He participated in multimodal treatments on the unit. He was treated with Lexapro 10 mg daily and is tolerating this medication well. Self-harm thoughts have remitted. The patient had a successful family meeting on date of discharge. Progress note from date of discharge, 05/10/18: "Case and treatment plan discussed in team meeting. Staff reports that the patient is denying suicidal ideation. Did not talk about what brought him here. Talked about [facility]. Has IOP intake at 1:15 PM. Patient seen at 10:27 AM. He was in group prior to meeting with me in office. Feels okay. Has no complaints. Affect is calm and blunted. Describes mood as "doing good, I'm happy, relaxed." Rates sad mood 0/10 and anxiety 2/10. Denies feeling hopeless, helpless, worthless or guilty. Denies active and passive suicidal ideation. Denies thoughts of engaging in self-injurious behavior. Denies homicidal ideation. Denies auditory and visual hallucinations and paranoid ideation. Describes sleep as pretty good. Reports appetite is good and states he ate breakfast. Energy is good and states he feels energetic. Feels ready and safe for discharge. Major risks and benefits of Lexapro were reviewed with the patient. He was advised to avoid drugs and alcohol while on this medication. He is tolerating Lexapro well. I attended family meeting with patient, parents, sister and drug abuse social worker, Teagan. Father reported that he will be removing patient's gun permit and all guns and ammunition will be locked up and unavailable to the patient. Patient's and family's questions were addressed. IMPRESSION: Condition improved. Okay for discharge today to IOP intake then to home and family." Discharge HBIPS - Tobacco Use Treatment Offered Post DC Medications Offered: Not Applicable Post DC Tobacco Treatment Plan: Not Applicable - EtOH/Drug Use D/O Treatment Offered Post DC Medications Offered: NA-No EtOH/Drug Use D/O Post DC EtOH/SubAbuse TX Plan: NA-No EtOH/Drug Use D/O Metabolic Screening - Screen if on a Neuroleptic Medication - Metabolic screening should include: - Blood Pressure, BMI, Glucose or Hgb A1c, & a - Lipid profile from within the past 365 days. Metabolic Screening ([x]) Not Applicable, patient not on a neuroleptic. OR () Patient on a neuroleptic(s) . Enter below results for Hemoglobin A1C, and lipid panel if obtained during the last 365 days. BMI: 21.300 Blood Pressure: 127/77 Laboratory Results From [facility] E[facility] (If applicable): Discharge Instructions General Discharge Information Multiple Neuroleptics: ([x]) Not Applicable OR Document below three failed attempts at monotherapy, or a plan to taper to monotherapy, or augmentation of Clozapine. () Discharge Diet Regular Discharge Activity Normal DC Disposition: Referred to [facility] 05/01/18 at 1:15 pm. Return to home, family and work. Referrals Ordered Referrals Provider Referral 05/01/18 For Groups: [facility] Antonio has an intake appt with [facility] 05/01/18 at 1:15pm [address] [place] [address] Prescriptions Start taking the following new medications: Escitalopram Oxalate (Lexapro) 10 MG TABLET 1 Tablet ORAL DAILY Qty = 14 No Refills Comments: Last Taken:05/01/18 Time:9AM Studies Pending at Discharge None. Copies To: Intensive Outpt Psychiatry
--- NOTE | 2018-05-01 15:29 | IP INCIDENTAL NOTE PSYCH ---
Incidental Note Notation: TSH was normal but Total T3 is high. I am asking IOP providers to repeat.
== END 2018-05-01 13:11 | DRG 881 ==
LOC: ERH 14:14 → CP SOUTH 21:39 → ERHI 21:39 → CP SOUTH 22:22 → ENRESERV 23:59 → CP SOUTH 04-30 10:40
PROVIDERS: Emergency Medicine
DX: F32.9 Major depressive disorder, single episode, unspecified (principal); Y28.9XXA Contact with unspecified sharp object, undetermined intent, initial encounter
CPT/HCPCS: 80307; G0480